=== PATIENT | female | born 1985 | race Caucasian/White ===

== ENCOUNTER 2020-08-20 08:45 | Outpatient (REF) | payer OTHER, SELFPAY ==
[2020-08-20 09:44] LABS: MANUAL DIFF FLAG NO
[2020-08-20 10:06] LABS: Basophils Absolute Auto 0.1 X10*3/uL (0.0-0.2); Basophils Percent Auto 1.2 % (0-2); Eosinophils Absolute Auto 0.3 X10*3/uL (0.0-0.4); Eosinophils Percent Auto 4.3 % (0-4); Hematocrit 34.4 % (37-47); Hemoglobin 10.7 g/dl (12.0-16.0); Imm Gran Abs Auto 0.01 X10*3/uL (0.00-0.03); Imm Gran Pct Auto 0.2 % (0.0-0.4); Lymphocytes Absolute Auto 1.8 X10*3/uL (1.2-4.9); Lymphocytes Percent Auto 29.9 % (20-40); Mean Corpuscular HGB Conc 31.1 g/dl (31.0-35.0); Mean Corpuscular Hemoglobin 25.5 pg (27.0-33.0); Mean Corpuscular Volume 82.1 fL (80-98); Mean Platelet Volume 10.5 fL (9.4-12.3); Monocytes Absolute Auto 0.5 X10*3/uL (0.1-1.2); Monocytes Percent Auto 7.8 % (2-11); Neutrophils Absolute Auto 3.3 X10*3/uL (2.0-8.3); Neutrophils Percent Auto 56.6 % (45-73); Platelet Count 318 X10*3/uL (160-400); Red Blood Count 4.19 X10*6/uL (4.20-5.50); Red Cell Distribution Width 15.9 % (11.0-16.0); White Blood Count 5.9 X10*3/uL (4.8-10.8)
[2020-08-20 11:09] LABS: Erythrocyte Sedimentation Rate 18 MM/HR (0-20)
[2020-08-20 11:21] LABS: Alanine Aminotransferase 10 U/L (0-31); Albumin Level 3.6 g/dL (3.5-5.0); Alkaline Phosphatase 61 U/L (39-117); Anion Gap 13 (12-20); Aspartate Amino Transferase 15 U/L (5-31); Bilirubin Total 0.3 mg/dL (0.0-1.0); Blood Urea Nitrogen 9 mg/dL (9-16); C Reactive Protein 0.53 mg/dL (< or = 0.50); Calcium 9.1 mg/dL (8.4-10.2); Carbon Dioxide 22 mmol/L (22-29); Chloride 108 mmol/L (96-108); Estimated Glomerular Filt Rate > 60; Glucose Random 77 mg/dL (60-115); Potassium 4.4 mmol/l (3.3-5.1); Sodium 139 mmol/L (135-145); Total Protein 6.7 g/dL (6.5-8.0)
== END 2020-08-20 08:46 | disposition home or self-care (01) ==
LOC: HO.LAB 08:45
PROVIDERS: PCP Internal Medicine; Visit Provider Student in an Organized Health Care Education/Training Program
DX: M05.79 Rheumatoid arthritis with rheumatoid factor of multiple sites without organ or systems involvement (principal)
CPT/HCPCS: 36415; 80053; 85025; 85652; 86140

== ENCOUNTER → 2020-08-26 09:34 | Outpatient (BNVA) | payer OTHER, SELFPAY | PROVIDERS: PCP Internal Medicine; Referring Provider Internal Medicine; Visit Provider Student in an Organized Health Care Education/Training Program | DX: Z76.89 Persons encountering health services in other specified circumstances (principal) ==

== ENCOUNTER 2020-11-14 06:56 | Outpatient (REF) | payer OTHER, SELFPAY ==
[2020-11-14 07:44] LABS: MANUAL DIFF FLAG NO
[2020-11-14 07:46] LABS: Basophils Absolute Auto 0.1 X10*3/uL (0.0-0.2); Basophils Percent Auto 1.1 % (0-2); Eosinophils Absolute Auto 0.7 X10*3/uL (0.0-0.4); Eosinophils Percent Auto 11.8 % (0-4); Hematocrit 43.3 % (37-47); Hemoglobin 13.9 g/dl (12.0-16.0); Imm Gran Abs Auto 0.02 X10*3/uL (0.00-0.03); Imm Gran Pct Auto 0.3 % (0.0-0.4); Lymphocytes Absolute Auto 2.8 X10*3/uL (1.2-4.9); Lymphocytes Percent Auto 44.3 % (20-40); Mean Corpuscular HGB Conc 32.1 g/dl (31.0-35.0); Mean Corpuscular Hemoglobin 27.9 pg (27.0-33.0); Mean Corpuscular Volume 86.8 fL (80-98); Mean Platelet Volume 10.7 fL (9.4-12.3); Monocytes Absolute Auto 0.6 X10*3/uL (0.1-1.2); Neutrophils Absolute Auto 2.1 X10*3/uL (2.0-8.3); Neutrophils Percent Auto 33.5 % (45-73); Platelet Count 342 X10*3/uL (160-400); Red Blood Count 4.99 X10*6/uL (4.20-5.50); White Blood Count 6.2 X10*3/uL (4.8-10.8)
[2020-11-14 08:02] LABS: Alanine Aminotransferase 12 U/L (0-31); Alkaline Phosphatase 58 U/L (39-117); Anion Gap 16 (12-20); Aspartate Amino Transferase 14 U/L (5-31); Bilirubin Total 0.4 mg/dL (0.0-1.0); Blood Urea Nitrogen 9 mg/dL (9-16); C Reactive Protein 0.19 mg/dL (< or = 0.50); Calcium 9.3 mg/dL (8.4-10.2); Carbon Dioxide 21 mmol/L (22-29); Chloride 108 mmol/L (96-108); Estimated Glomerular Filt Rate > 60; Glucose Random 92 mg/dL (60-115); Potassium 4.6 mmol/l (3.3-5.1); Sodium 140 mmol/L (135-145); Total Protein 7.2 g/dL (6.5-8.0)
== END 2020-11-14 06:57 | disposition home or self-care (01) ==
LOC: HO.LAB 06:56
PROVIDERS: Visit Provider Student in an Organized Health Care Education/Training Program
DX: M05.9 Rheumatoid arthritis with rheumatoid factor, unspecified (principal)
CPT/HCPCS: 36415; 80053; 85025; 86140

== ENCOUNTER → 2020-11-19 09:07 | Outpatient (BNVA) | payer OTHER, SELFPAY | PROVIDERS: PCP Internal Medicine; Visit Provider Student in an Organized Health Care Education/Training Program ==

== ENCOUNTER 2021-05-12 07:05 | Outpatient (REF) | payer OTHER, SELFPAY ==
[2021-05-12 07:30] LABS: MANUAL DIFF FLAG NO
[2021-05-12 07:31] LABS: Basophils Absolute Auto 0.1 X10*3/uL (0.0-0.2); Basophils Percent Auto 1.8 % (0-2); Eosinophils Absolute Auto 0.7 X10*3/uL (0.0-0.4); Eosinophils Percent Auto 14.2 % (0-4); Hematocrit 39.9 % (37-47); Hemoglobin 12.9 g/dl (12.0-16.0); Lymphocytes Absolute Auto 2.5 X10*3/uL (1.2-4.9); Lymphocytes Percent Auto 48.8 % (20-40); Mean Corpuscular HGB Conc 32.3 g/dl (31.0-35.0); Mean Corpuscular Hemoglobin 28.6 pg (27.0-33.0); Mean Corpuscular Volume 88.5 fL (80-98); Mean Platelet Volume 10.2 fL (9.4-12.3); Monocytes Absolute Auto 0.4 X10*3/uL (0.1-1.2); Monocytes Percent Auto 7.1 % (2-11); Neutrophils Absolute Auto 1.4 X10*3/uL (2.0-8.3); Neutrophils Percent Auto 28.1 % (45-73); Platelet Count 341 X10*3/uL (160-400); Red Blood Count 4.51 X10*6/uL (4.20-5.50); Red Cell Distribution Width 14.3 % (11.0-16.0); White Blood Count 5.1 X10*3/uL (4.8-10.8)
[2021-05-12 07:57] LABS: Alanine Aminotransferase 10 U/L (0-31); Albumin Level 3.8 g/dL (3.5-5.0); Alkaline Phosphatase 57 U/L (39-117); Anion Gap 12 (12-20); Aspartate Amino Transferase 13 U/L (5-31); Bilirubin Total 0.8 mg/dL (0.0-1.0); Blood Urea Nitrogen 10 mg/dL (9-16); C Reactive Protein 0.23 mg/dL (< or = 0.50); Calcium 9.6 mg/dL (8.4-10.2); Carbon Dioxide 24 mmol/L (22-29); Chloride 109 mmol/L (96-108); Estimated Glomerular Filt Rate > 60; Glucose Random 86 mg/dL (60-115); Potassium 4.4 mmol/L (3.3-5.1); Sodium 141 mmol/L (135-145); Total Protein 6.9 g/dL (6.5-8.0)
== END 2021-05-12 07:06 | disposition home or self-care (01) ==
LOC: HO.LAB 07:05
PROVIDERS: PCP Internal Medicine; Visit Provider Student in an Organized Health Care Education/Training Program
DX: M05.9 Rheumatoid arthritis with rheumatoid factor, unspecified (principal)
CPT/HCPCS: 36415; 80053; 85025; 86140

== ENCOUNTER → 2021-05-19 11:20 | Outpatient (BNVA) | payer OTHER, SELFPAY | PROVIDERS: Visit Provider Student in an Organized Health Care Education/Training Program ==

== ENCOUNTER 2021-09-22 14:19 | Outpatient (REF) | payer OTHER, SELFPAY ==
[2021-09-22 15:23] LABS: MANUAL DIFF FLAG NO
[2021-09-22 15:52] LABS: Basophils Absolute Auto 0.1 X10*3/uL (0.0-0.2); Eosinophils Absolute Auto 0.7 X10*3/uL (0.0-0.4); Eosinophils Percent Auto 10.3 % (0-4); Hematocrit 40.4 % (37.0-47.0); Hemoglobin 13.2 g/dl (12.0-16.0); Imm Gran Abs Auto 0.03 X10*3/uL (0.00-0.03); Imm Gran Pct Auto 0.4 % (0.0-0.4); Lymphocytes Absolute Auto 2.7 X10*3/uL (1.2-4.9); Lymphocytes Percent Auto 38.6 % (20-40); Mean Corpuscular HGB Conc 32.7 g/dl (31.0-35.0); Mean Corpuscular Hemoglobin 28.3 pg (27.0-33.0); Mean Corpuscular Volume 86.7 fL (80.0-98.0); Mean Platelet Volume 10.6 fL (9.4-12.3); Monocytes Absolute Auto 0.7 X10*3/uL (0.1-1.2); Monocytes Percent Auto 9.6 % (2-11); Neutrophils Absolute Auto 2.8 x10*3/uL (2.0-8.3); Neutrophils Percent Auto 40.1 % (45-73); Platelet Count 308 X10*3/uL (160-400); Red Blood Count 4.66 X10*6/uL (4.20-5.50); Red Cell Distribution Width 13.5 % (11.0-16.0)
[2021-09-22 16:06] LABS: Alanine Aminotransferase 11 U/L (0-31); Albumin Level 3.9 g/dL (3.5-5.0); Alkaline Phosphatase 58 U/L (39-117); Anion Gap 11 (12-20); Aspartate Amino Transferase 16 U/L (5-31); Bilirubin Total 0.3 mg/dL (0.0-1.0); Blood Urea Nitrogen 6 mg/dL (9-16); C Reactive Protein 0.39 mg/dL (< or = 0.50); Calcium 9.2 mg/dL (8.4-10.2); Carbon Dioxide 22 mmol/L (22-29); Chloride 112 mmol/L (96-108); Estimated Glomerular Filt Rate > 60; Glucose Random 110 mg/dL (60-115); Potassium 3.9 mmol/L (3.3-5.1); Sodium 141 mmol/L (135-145); Total Protein 6.9 g/dL (6.5-8.0)
[2021-09-22 17:08] LABS: Erythrocyte Sedimentation Rate 7 MM/HR (0-20)
== END 2021-09-22 14:20 | disposition home or self-care (01) ==
LOC: HO.LAB 14:19
PROVIDERS: PCP Internal Medicine; Visit Provider Nurse Practitioner Family
DX: M05.9 Rheumatoid arthritis with rheumatoid factor, unspecified (principal); R01.1 Cardiac murmur, unspecified
CPT/HCPCS: 36415; 80053; 85025; 85652; 86140

== ENCOUNTER 2022-01-27 07:56 | Outpatient (REF) | payer OTHER, SELFPAY ==
[2022-01-27 08:31] LABS: MANUAL DIFF FLAG NO
[2022-01-27 08:45] LABS: Basophils Absolute Auto 0.1 X10*3/uL (0.0-0.2); Basophils Percent Auto 1.2 % (0-2); Eosinophils Absolute Auto 0.6 X10*3/uL (0.0-0.4); Eosinophils Percent Auto 8.3 % (0-4); Hematocrit 39.9 % (37.0-47.0); Hemoglobin 13.1 g/dl (12.0-16.0); Imm Gran Abs Auto 0.01 X10*3/uL (0.00-0.03); Imm Gran Pct Auto 0.1 % (0.0-0.4); Lymphocytes Absolute Auto 2.2 X10*3/uL (1.2-4.9); Lymphocytes Percent Auto 31.8 % (20-40); Mean Corpuscular HGB Conc 32.8 g/dl (31.0-35.0); Mean Corpuscular Hemoglobin 29.2 pg (27.0-33.0); Mean Corpuscular Volume 88.9 fL (80.0-98.0); Mean Platelet Volume 10.4 fL (9.4-12.3); Monocytes Absolute Auto 0.5 X10*3/uL (0.1-1.2); Monocytes Percent Auto 7.8 % (2-11); Neutrophils Absolute Auto 3.5 x10*3/uL (2.0-8.3); Neutrophils Percent Auto 50.8 % (45-73); Platelet Count 336 X10*3/uL (160-400); Red Blood Count 4.49 X10*6/uL (4.20-5.50); White Blood Count 6.9 X10*3/uL (4.8-10.8)
[2022-01-27 09:08] LABS: Alanine Aminotransferase 16 U/L (0-31); Albumin Level 3.7 g/dL (3.5-5.0); Alkaline Phosphatase 61 U/L (39-117); Anion Gap 12 (12-20); Aspartate Amino Transferase 18 U/L (5-31); Bilirubin Total 0.6 mg/dL (0.0-1.0); Blood Urea Nitrogen 10 mg/dL (9-16); C Reactive Protein 0.41 mg/dL (< or = 0.50); Calcium 9.6 mg/dL (8.4-10.2); Carbon Dioxide 23 mmol/L (22-29); Chloride 108 mmol/L (96-108); Estimated Glomerular Filt Rate > 60; Glucose Random 81 mg/dL (60-115); Potassium 4.8 mmol/L (3.3-5.1); Sodium 138 mmol/L (135-145); Total Protein 6.8 g/dL (6.5-8.0)
[2022-01-27 11:32] LABS: Erythrocyte Sedimentation Rate 7 MM/HR (0-20)
== END 2022-01-27 07:57 | disposition home or self-care (01) ==
LOC: HO.LAB 07:56
PROVIDERS: PCP Internal Medicine; Visit Provider Nurse Practitioner Family
DX: M05.9 Rheumatoid arthritis with rheumatoid factor, unspecified (principal)
CPT/HCPCS: 36415; 80053; 85025; 85652; 86140

== ENCOUNTER 2022-04-20 08:50 | Outpatient (REF) | payer OTHER, SELFPAY ==
[2022-04-20 11:25] LABS: MANUAL DIFF FLAG NO
[2022-04-20 11:53] LABS: Basophils Absolute Auto 0.1 X10*3/uL (0.0-0.2); Basophils Percent Auto 1.7 % (0-2); Eosinophils Absolute Auto 0.5 X10*3/uL (0.0-0.4); Eosinophils Percent Auto 11.2 % (0-4); Hematocrit 38.7 % (37.0-47.0); Hemoglobin 12.6 g/dl (12.0-16.0); Imm Gran Abs Auto 0.01 X10*3/uL (0.00-0.03); Imm Gran Pct Auto 0.2 % (0.0-0.4); Lymphocytes Absolute Auto 2.1 X10*3/uL (1.2-4.9); Lymphocytes Percent Auto 43.5 % (20-40); Mean Corpuscular HGB Conc 32.6 g/dl (31.0-35.0); Mean Corpuscular Hemoglobin 29.1 pg (27.0-33.0); Mean Corpuscular Volume 89.4 fL (80.0-98.0); Monocytes Absolute Auto 0.4 X10*3/uL (0.1-1.2); Monocytes Percent Auto 8.5 % (2-11); Neutrophils Absolute Auto 1.7 x10*3/uL (2.0-8.3); Neutrophils Percent Auto 34.9 % (45-73); Platelet Count 335 X10*3/uL (160-400); Red Blood Count 4.33 X10*6/uL (4.20-5.50); Red Cell Distribution Width 14.2 % (11.0-16.0); White Blood Count 4.8 X10*3/uL (4.8-10.8)
[2022-04-20 12:10] LABS: Alanine Aminotransferase 9 U/L (0-31); Albumin Level 3.7 g/dL (3.5-5.0); Alkaline Phosphatase 64 U/L (39-117); Anion Gap 12 (12-20); Aspartate Amino Transferase 13 U/L (5-31); Bilirubin Total 0.4 mg/dL (0.0-1.0); Blood Urea Nitrogen 10 mg/dL (9-16); C Reactive Protein 0.16 mg/dL (< or = 0.50); Calcium 9.1 mg/dL (8.4-10.2); Carbon Dioxide 22 mmol/L (22-29); Chloride 110 mmol/L (96-108); Estimated Glomerular Filt Rate > 60; Glucose Random 92 mg/dL (60-115); Potassium 4.2 mmol/L (3.3-5.1); Sodium 140 mmol/L (135-145); Total Protein 6.6 g/dL (6.5-8.0)
[2022-04-20 12:31] LABS: Erythrocyte Sedimentation Rate 5 MM/HR (0-20)
== END 2022-04-20 08:51 | disposition home or self-care (01) ==
LOC: HO.WFDLDS 08:50
PROVIDERS: Visit Provider Nurse Practitioner Family
DX: M05.9 Rheumatoid arthritis with rheumatoid factor, unspecified (principal)
CPT/HCPCS: 36415; 80053; 85025; 85652; 86140

== ENCOUNTER 2022-06-04 08:30 | Outpatient (REF) | payer OTHER, SELFPAY ==
[2022-06-04 11:52] LABS: MANUAL DIFF FLAG NO
[2022-06-04 12:02] LABS: Basophils Absolute Auto 0.1 X10*3/uL (0.0-0.2); Basophils Percent Auto 1.3 % (0-2); Eosinophils Absolute Auto 0.5 X10*3/uL (0.0-0.4); Eosinophils Percent Auto 10.1 % (0-4); Hematocrit 39.4 % (37.0-47.0); Imm Gran Abs Auto 0.01 X10*3/uL (0.00-0.03); Imm Gran Pct Auto 0.2 % (0.0-0.4); Lymphocytes Absolute Auto 2.5 X10*3/uL (1.2-4.9); Lymphocytes Percent Auto 55.4 % (20-40); Mean Corpuscular Hemoglobin 29.3 pg (27.0-33.0); Mean Corpuscular Volume 88.7 fL (80.0-98.0); Mean Platelet Volume 10.8 fL (9.4-12.3); Monocytes Absolute Auto 0.5 X10*3/uL (0.1-1.2); Monocytes Percent Auto 10.3 % (2-11); Neutrophils Percent Auto 22.7 % (45-73); Platelet Count 311 X10*3/uL (160-400); Red Blood Count 4.44 X10*6/uL (4.20-5.50); Red Cell Distribution Width 14.3 % (11.0-16.0); White Blood Count 4.5 X10*3/uL (4.8-10.8)
== END 2022-06-04 08:31 | disposition home or self-care (01) ==
LOC: HO.WFDLDS 08:30
PROVIDERS: Visit Provider Nurse Practitioner Family
DX: M05.9 Rheumatoid arthritis with rheumatoid factor, unspecified (principal)
CPT/HCPCS: 36415; 85025

== ENCOUNTER 2022-06-30 08:47 | Outpatient (REF) | payer OTHER, SELFPAY ==
[2022-06-30 11:09] LABS: MANUAL DIFF FLAG NO
[2022-06-30 11:17] LABS: Basophils Absolute Auto 0.1 X10*3/uL (0.0-0.2); Basophils Percent Auto 1.4 % (0-2); Eosinophils Absolute Auto 0.3 X10*3/uL (0.0-0.4); Eosinophils Percent Auto 7.8 % (0-4); Hematocrit 40.1 % (37.0-47.0); Hemoglobin 13.3 g/dl (12.0-16.0); Imm Gran Abs Auto 0.01 X10*3/uL (0.00-0.03); Imm Gran Pct Auto 0.2 % (0.0-0.4); Lymphocytes Absolute Auto 1.9 X10*3/uL (1.2-4.9); Lymphocytes Percent Auto 45.8 % (20-40); Mean Corpuscular HGB Conc 33.2 g/dl (31.0-35.0); Mean Corpuscular Hemoglobin 28.9 pg (27.0-33.0); Mean Corpuscular Volume 87.2 fL (80.0-98.0); Mean Platelet Volume 10.6 fL (9.4-12.3); Monocytes Absolute Auto 0.4 X10*3/uL (0.1-1.2); Monocytes Percent Auto 10.1 % (2-11); Neutrophils Absolute Auto 1.5 x10*3/uL (2.0-8.3); Neutrophils Percent Auto 34.7 % (45-73); Platelet Count 317 X10*3/uL (160-400); Red Cell Distribution Width 13.9 % (11.0-16.0); White Blood Count 4.2 X10*3/uL (4.8-10.8)
== END 2022-06-30 08:48 | disposition home or self-care (01) ==
LOC: HO.WFDLDS 08:47
PROVIDERS: Visit Provider Nurse Practitioner Family
DX: D70.9 Neutropenia, unspecified (principal)
CPT/HCPCS: 36415; 85025

== ENCOUNTER 2022-08-18 09:54 | Outpatient (REF) | payer OTHER, SELFPAY ==
[2022-08-18 10:36] LABS: MANUAL DIFF FLAG NO
[2022-08-18 11:05] LABS: Basophils Absolute Auto 0.1 X10*3/uL (0.0-0.2); Basophils Percent Auto 0.9 % (0-2); Eosinophils Absolute Auto 0.4 X10*3/uL (0.0-0.4); Eosinophils Percent Auto 5.3 % (0-4); Hematocrit 42.7 % (37.0-47.0); Hemoglobin 13.9 g/dl (12.0-16.0); Imm Gran Abs Auto 0.01 X10*3/uL (0.00-0.03); Imm Gran Pct Auto 0.1 % (0.0-0.4); Lymphocytes Percent Auto 28.2 % (20-40); Mean Corpuscular HGB Conc 32.6 g/dl (31.0-35.0); Mean Corpuscular Hemoglobin 28.3 pg (27.0-33.0); Mean Platelet Volume 10.7 fL (9.4-12.3); Monocytes Absolute Auto 0.4 X10*3/uL (0.1-1.2); Monocytes Percent Auto 5.2 % (2-11); Neutrophils Absolute Auto 4.2 x10*3/uL (2.0-8.3); Neutrophils Percent Auto 60.3 % (45-73); Platelet Count 341 X10*3/uL (160-400); Red Blood Count 4.91 X10*6/uL (4.20-5.50); Red Cell Distribution Width 13.4 % (11.0-16.0)
[2022-08-18 11:29] LABS: Alanine Aminotransferase 9 U/L (0-31); Aspartate Amino Transferase 13 U/L (5-31); C Reactive Protein 0.12 mg/dL (< or = 0.50); Estimated Glomerular Filt Rate > 60
[2022-08-18 11:51] LABS: Erythrocyte Sedimentation Rate 6 MM/HR (0-20)
== END 2022-08-18 09:55 | disposition home or self-care (01) ==
LOC: HO.10HDL 09:54
PROVIDERS: Visit Provider Nurse Practitioner Family
DX: M05.9 Rheumatoid arthritis with rheumatoid factor, unspecified (principal); Z79.899 Other long term (current) drug therapy
CPT/HCPCS: 36415; 82565; 84450; 84460; 85025; 85652; 86140

== ENCOUNTER → 2022-11-17 11:11 | Outpatient (BNVA) | payer OTHER, SELFPAY | PROVIDERS: PCP Internal Medicine; Visit Provider Nurse Practitioner Family | DX: M05.9 Rheumatoid arthritis with rheumatoid factor, unspecified (principal) ==

== ENCOUNTER 2022-11-17 12:04 | Outpatient (REF) | payer OTHER, SELFPAY ==
[2022-11-17 13:35] LABS: MANUAL DIFF FLAG NO
[2022-11-17 13:44] LABS: Basophils Absolute Auto 0.1 X10*3/uL (0.0-0.2); Eosinophils Absolute Auto 0.6 X10*3/uL (0.0-0.4); Eosinophils Percent Auto 6.8 % (0-4); Hematocrit 42.8 % (37.0-47.0); Hemoglobin 14.1 g/dl (12.0-16.0); Imm Gran Abs Auto 0.02 X10*3/uL (0.00-0.03); Imm Gran Pct Auto 0.2 % (0.0-0.4); Lymphocytes Absolute Auto 3.1 X10*3/uL (1.2-4.9); Lymphocytes Percent Auto 36.6 % (20-40); Mean Corpuscular HGB Conc 32.9 g/dl (31.0-35.0); Mean Corpuscular Hemoglobin 29.6 pg (27.0-33.0); Mean Corpuscular Volume 89.7 fL (80.0-98.0); Mean Platelet Volume 10.4 fL (9.4-12.3); Monocytes Absolute Auto 0.4 X10*3/uL (0.1-1.2); Monocytes Percent Auto 5.3 % (2-11); Neutrophils Absolute Auto 4.2 x10*3/uL (2.0-8.3); Neutrophils Percent Auto 50.1 % (45-73); Platelet Count 346 X10*3/uL (160-400); Red Blood Count 4.77 X10*6/uL (4.20-5.50); White Blood Count 8.4 X10*3/uL (4.8-10.8)
[2022-11-17 14:27] LABS: Erythrocyte Sedimentation Rate 5 MM/HR (0-20)
[2022-11-17 14:38] LABS: Alanine Aminotransferase 9 U/L (0-31); Aspartate Amino Transferase 13 U/L (5-31); C Reactive Protein 0.19 mg/dL (< or = 0.50); Estimated Glomerular Filt Rate > 60
== END 2022-11-17 12:05 | disposition home or self-care (01) ==
LOC: HO.10HDL 12:04
PROVIDERS: Visit Provider Nurse Practitioner Family
DX: M05.9 Rheumatoid arthritis with rheumatoid factor, unspecified (principal); Z79.899 Other long term (current) drug therapy
CPT/HCPCS: 36415; 82565; 84450; 84460; 85025; 85652; 86140

== ENCOUNTER → 2023-03-16 08:28 | Outpatient (BNVA) | payer OTHER, SELFPAY | PROVIDERS: PCP Internal Medicine; Visit Provider Nurse Practitioner Family ==

== ENCOUNTER 2023-03-16 09:15 | Outpatient (REF) | payer OTHER, SELFPAY ==
[2023-03-16 10:34] LABS: MANUAL DIFF FLAG NO
[2023-03-16 10:45] LABS: Basophils Absolute Auto 0.1 X10*3/uL (0.0-0.2); Basophils Percent Auto 0.9 % (0-2); Eosinophils Absolute Auto 0.7 X10*3/uL (0.0-0.4); Hematocrit 44.3 % (37.0-47.0); Hemoglobin 14.7 g/dl (12.0-16.0); Imm Gran Abs Auto 0.03 X10*3/uL (0.00-0.03); Imm Gran Pct Auto 0.4 % (0.0-0.4); Lymphocytes Absolute Auto 2.9 X10*3/uL (1.2-4.9); Lymphocytes Percent Auto 35.3 % (20-40); Mean Corpuscular HGB Conc 33.2 g/dl (31.0-35.0); Mean Corpuscular Hemoglobin 29.2 pg (27.0-33.0); Mean Corpuscular Volume 87.9 fL (80.0-98.0); Mean Platelet Volume 9.6 fL (9.4-12.3); Monocytes Absolute Auto 0.5 X10*3/uL (0.1-1.2); Monocytes Percent Auto 5.7 % (2-11); Neutrophils Percent Auto 48.7 % (45-73); Platelet Count 375 X10*3/uL (160-400); Red Blood Count 5.04 X10*6/uL (4.20-5.50); Red Cell Distribution Width 13.1 % (11.0-16.0); White Blood Count 8.2 X10*3/uL (4.8-10.8)
[2023-03-16 11:07] LABS: Alanine Aminotransferase 18 U/L (0-31); Albumin Level 4.1 g/dL (3.5-5.0); Alkaline Phosphatase 86 U/L (39-117); Anion Gap 11 (12-20); Aspartate Amino Transferase 17 U/L (5-31); Bilirubin Total 0.8 mg/dL (0.0-1.0); Blood Urea Nitrogen 9 mg/dL (9-16); C Reactive Protein 0.12 mg/dL (< or = 0.50); Calcium 9.5 mg/dL (8.4-10.2); Carbon Dioxide 27 mmol/L (22-29); Chloride 107 mmol/L (96-108); Estimated Glomerular Filt Rate > 60; Glucose Random 78 mg/dL (60-115); Potassium 4.2 mmol/L (3.3-5.1); Sodium 141 mmol/L (135-145)
[2023-03-16 11:32] LABS: Erythrocyte Sedimentation Rate 5 MM/HR (0-20)
== END 2023-03-16 09:16 | disposition home or self-care (01) ==
LOC: HO.10HDL 09:15
PROVIDERS: Visit Provider Nurse Practitioner Family
DX: M05.9 Rheumatoid arthritis with rheumatoid factor, unspecified (principal)
CPT/HCPCS: 36415; 80053; 85025; 85652; 86140

== ENCOUNTER 2023-07-13 09:07 | Outpatient (AMB) | payer OTHER, SELFPAY ==
[2023-07-13 09:20] VITALS: BP 122/80; PULSE 66; TEMP 36.6; O2SAT 94; BMI 38.4
--- NOTE | 2023-07-13 09:20 | A.OFFVIS_ITS ---
Intake Vital Signs 07/13/23 09:20 Height 5 ft 5 in Weight 230 lb 13.184 oz BMI 38.4 BP 122/80 Blood Pressure Location Rt brachial Position Sitting Pulse 66 Pulse Source Pulse Oximeter Temp 97.8 F Pulse Oximetry (%) 94 Intake Visit Reasons: rheumatoid arthritis Intake Note: Pt seen today for RA follow up. C/o right hand thumb and pinky finger pain a pprox 2 mos ago, lasted for a day and resolved on its own. Process Controls Technician Required: No Accompanied by: Self / Same As Patient Allergies BEE STINGS Allergy (Intermediate, Uncoded 07/13/23 09:24) Swelling Medication List - Last Reconciled 07/13/23 by Kell Mae MD adalimumab (Humira Pen) 40 mg (0.8 mL) subcut Q2W cholecalciferol (vitamin D3) 25 mcg PO DAILY cyanocobalamin (vitamin B-12) 1,000 mcg PO DAILY ferrous sulfate 325 mg PO DAILY lutein 10 mg PO DAILY naproxen sodium (Aleve) 220 mg PO BID PRN norgestimate-ethinyl estradiol 0.25-35 mg-mcg (Previfem) 1 tab PO DAILY omeprazole 40 mg PO DAILY HPI HPI Comments History of Present Illness Details 37yoF presents for follow-up of seroposi tive RA (RF+ CCP++). Last seen in by Rosalind Cross 03/22 On Humira, tolerating this well. Patient states that her rheumatoid arthritis pain is stable. States that 2 months ago she had some pain in her right hand thumb and pinky finger that self- resolved in 1 day. Over the last 4-5 months she has been having shortness of breath and cough worse with activity and smoke exposure. She has been using [id number] epinephrine inhalers. She has had difficulty getting to see her PCP. She mentioned that she had asthma as a child and she grew out of it [facility] Medical History (Updated 07/13/23 @ 09:53 by Kell Mae MD) Seropositive rheumatoid arthritis Surgical History Hx of tubal ligation Family History Father Diabetes Heart disease Mother Arthritis Social History Alcohol intake: current Alcohol intake frequency: holidays/special occasions only Alcohol type: hard liquor Patient Tobacco Use Status: Never used Tobacco Review of Systems Card Reports dyspnea Resp Reports cough and Reports dyspnea Musc Denies arthralgias Physical Exam Vital Signs: Last Vital Signs Temp 97.8 F 07/13/23 09:20 Pulse 66 07/13/23 09:20 BP 122/80 07/13/23 09:20 Pulse Ox 94 07/13/23 09:20 BMI result Body Mass Index 38.4 Const General: cooperative, healthy appearing and comfortable Nutritional Appearance: obese Orientation/consciousness: patient oriented x3 Limitations: no limitations HEENT Head: Yes normocephalic and Yes atraumatic Mouth: moist mucous membranes Resp Effort & Inspection: normal respiratory effort and able to speak in complete sentences Auscultation: wheezes Cardio Rate: regular rate Rhythm: regular rhythm Neuro General: patient oriented x3 Extrem Other: Mild prominence of PIP is bilaterally without swelling or tenderness No active synovitis Normal nailfold capillaroscopy Assessment & Plan Assessment & Plan (1) Seropositive rheumatoid arthritis: Comment: +RF++CCP Diagnosed age 23 Enbrel: stopped working after a few years Methotrexate: stopped, she thinks due to labs Simponi: Stopped working after a few years Humira: 07/2015-present Leflunomide: 2013- stopped due to low absolute neutrophil count, labs improved off medication, no change joint pain or swelling 07/2022 so did not restart Code(s): M05.9 - Rheumatoid arthritis with rheumatoid factor, unspecified Plan: This is a 37-year-old female with seropositive RA who presents for follow-up. Her RA is in remission on Humira 40 mg every other week. Continue Humira Labs before next visit in 4 months (2) Shortness of breath: Code(s): R06.02 - Shortness of breath Plan: History of asthma as a child, shortness of breath cough over the last 4-6 months exacerbated by activity and smoke. Wheezing on exam. Likely asthma. Will prescribe an albuterol inhaler and advised patient to follow-up with her PCP. Will check PFTs to confirm the diagnosis of asthma and rule out overlap with RA- ILD (3) High risk medication use: Code(s): Z79.899 - Other residential (current) drug therapy Plan: Patient is aware of the risks of Humira. Advised patient to get a a complete skin exam every 1 or 2 years by Dermatology Plan I spent 26 minutes reviewing patient's chart, evaluating patient, ordering diagnostic workup, counseling patient and documenting in the chart Orders: Orders Comprehensive Met. Panel 4 Months M05.9 - Rheumatoid arthritis with rheumatoid factor, unspecified Erythrocyte Sedimentation Rate 4 Months M05.9 - Rheumatoid arthritis with rheumatoid factor, unspecified T Spot TB 4 Months Z11.7 - Encounter for testing for latent tuberculosis infection Complete Blood Count Auto Diff 4 Months M05.9 - Rheumatoid arthritis with rheumatoid factor, unspecified C Reactive Protein 4 Months M05.9 - Rheumatoid arthritis with rheumatoid factor, unspecified Hepatitis A,B,C Profile 4 Months Z11.59 - Encounter for screening for other viral diseases PFT pulmonary function test Today R06.02 - Shortness of breath Medications: New albuterol sulfate 90 mcg/actuation (Ventolin HFA) 1 inh inhalation Q4-6H PRN 6.7 grams 1RF shortness of breath or wheezing Coding Level of Care Code Est Pt Level 4 (43020) Diagnoses Seropositive rheumatoid arthritis M05.9 Shortness of breath R06.02 High risk medication use Z79.899
== END 2023-07-13 09:44 | disposition home or self-care (01) ==
PROVIDERS: PCP Internal Medicine; Visit Provider Student in an Organized Health Care Education/Training Program
DX: M05.79 Rheumatoid arthritis with rheumatoid factor of multiple sites without organ or systems involvement (principal); R06.02 Shortness of breath; Z79.899 Other long term (current) drug therapy
CPT/HCPCS: 99214

== ENCOUNTER → 2023-07-13 09:07 | Outpatient (BNVA) | payer OTHER, SELFPAY | PROVIDERS: PCP Internal Medicine; Visit Provider Student in an Organized Health Care Education/Training Program ==

== ENCOUNTER 2023-08-02 07:26 | Outpatient (REF) | payer OTHER, SELFPAY ==
--- NOTE | 2023-08-02 08:06 | PFT_ITS ---
INDICATION: Asthma. SPIROMETRY: FEV1 to FVC prebronchodilator 68%, postbronchodilator 78% with an FEV1 of 2.95 L, which is 92% predicted and FVC of 3.79 L, which is 98% predicted. There was a significant response to bronchodilators noted. The FEF 25 to 75 was down to 35% predicted prior to bronchodilators. Maximum voluntary ventilation 67% predicted. LUNG VOLUMES: Total lung capacity 88% predicted. DIFFUSION CAPACITY: DLCO of 97% predicted. COMPARISONS: None. INTERPRETATION: There is a reversal obstructive ventilatory defects consistent with a diagnosis of asthma. The patient has a significant response to bronchodilators noted. In addition to that has significant more airway disease suggesting the severity of her asthma. The patient also has a mild decreased in maximum voluntary ventilation, which could be secondary to deconditioning. Lung volumes are within normal limits and diffusion capacity within normal limits. Again, this PFTs are consistent with her diagnosis of asthma. MD DASIA Gordon/DORI / [id number]
== END 2023-08-02 07:27 | disposition home or self-care (01) ==
LOC: HO.RESP 07:26
PROVIDERS: PCP Internal Medicine; Visit Provider Student in an Organized Health Care Education/Training Program
DX: R06.02 Shortness of breath (principal)
CPT/HCPCS: 94010; 94727; 94729

== ENCOUNTER → 2023-08-02 08:06 | Outpatient (BNV) | payer OTHER, SELFPAY | PROVIDERS: PCP Internal Medicine; Visit Provider Hospitalist | DX: R06.02 Shortness of breath (principal) | CPT/HCPCS: 94060; 94727; 94729 ==

== ENCOUNTER 2023-10-26 08:40 | Outpatient (REF) | payer OTHER, SELFPAY ==
[2023-10-26 10:22] LABS: MANUAL DIFF FLAG NO
[2023-10-26 10:26] LABS: Basophils Absolute Auto 0.1 X10*3/uL (0.0-0.2); Basophils Percent Auto 1.2 % (0-2); Eosinophils Percent Auto 13.7 % (0-4); Hematocrit 42.6 % (37.0-47.0); Hemoglobin 14.3 g/dl (12.0-16.0); Imm Gran Abs Auto 0.01 X10*3/uL (0.00-0.03); Imm Gran Pct Auto 0.1 % (0.0-0.4); Lymphocytes Absolute Auto 2.9 X10*3/uL (1.2-4.9); Lymphocytes Percent Auto 39.9 % (20-40); Mean Corpuscular HGB Conc 33.6 g/dl (31.0-35.0); Mean Corpuscular Hemoglobin 29.7 pg (27.0-33.0); Mean Corpuscular Volume 88.4 fL (80.0-98.0); Mean Platelet Volume 9.6 fL (9.4-12.3); Monocytes Absolute Auto 0.4 X10*3/uL (0.1-1.2); Monocytes Percent Auto 5.8 % (2-11); Neutrophils Absolute Auto 2.9 x10*3/uL (2.0-8.3); Neutrophils Percent Auto 39.3 % (45-73); Platelet Count 371 X10*3/uL (160-400); Red Blood Count 4.82 X10*6/uL (4.20-5.50); Red Cell Distribution Width 12.6 % (11.0-16.0); White Blood Count 7.3 X10*3/uL (4.8-10.8)
[2023-10-26 10:56] LABS: Alanine Aminotransferase 10 U/L (0-31); Alkaline Phosphatase 74 U/L (39-117); Anion Gap 10 (12-20); Aspartate Amino Transferase 14 U/L (5-31); Bilirubin Total 0.6 mg/dL (0.0-1.0); Blood Urea Nitrogen 12 mg/dL (9-16); Calcium 9.1 mg/dL (8.4-10.2); Carbon Dioxide 26 mmol/L (22-29); Chloride 108 mmol/L (96-108); Estimated Glomerular Filt Rate > 60; Glucose Random 86 mg/dL (60-115); Potassium 3.8 mmol/L (3.3-5.1); Sodium 140 mmol/L (135-145); Total Protein 7.1 g/dL (6.5-8.0)
[2023-10-26 11:04] LABS: Erythrocyte Sedimentation Rate 4 MM/HR (0-20)
[2023-10-26 11:12] LABS: HBS Num1 82.49 mIU/mL (0-7.99); HBc Num1 0.09 S/CO (0.00-0.79); HBsAGNum1 0.31 S/CO (0.00-0.99); Hepatitis A Antibody IgM 0.19 Index (0-0.79); Hepatitis B Core Antibody Nonreactive (Nonreactive); Hepatitis B Surface Antigen Negative (Negative); ~Hepatitis A Antibody IgM Nonreactive (Nonreactive); ~Hepatitis B Surface Antibody REACTIVE (Nonreactive); ~Hepatitis C Antibody Nonreactive (Nonreactive)
[2023-10-28 21:28] LABS: TS Negative Control Passed; TS Panel A 3; TS Panel B 2; TS Positive Control Passed; TSpotTB Negative (Negative)
== END 2023-10-26 08:41 | disposition home or self-care (01) ==
LOC: HO.10HDL 08:40
PROVIDERS: Visit Provider Student in an Organized Health Care Education/Training Program
DX: M05.9 Rheumatoid arthritis with rheumatoid factor, unspecified (principal); Z11.7 Encounter for testing for latent tuberculosis infection; Z11.59 Encounter for screening for other viral diseases; Z72.89 Other problems related to lifestyle
CPT/HCPCS: 36415; 80053; 85025; 85652; 86140; 86481; 86704; 86706; 86709; 86803; 87340

== ENCOUNTER 2023-11-16 10:07 | Outpatient (AMB) | payer OTHER, SELFPAY ==
[2023-11-16 10:13] VITALS: BP 128/76; PULSE 71; O2SAT 98; BMI 39.0
--- NOTE | 2023-11-16 10:13 | A.OFFVIS_ITS ---
Intake Vital Signs 11/16/23 10:13 Height 5 ft 5 in Weight 234 lb 5.622 oz BMI 39.0 BP 128/76 Blood Pressure Location Rt brachial Position Sitting Pulse 71 Pulse Source Pulse Oximeter Pulse Oximetry (%) 98 Oxygen Delivery Method Room Air Intake Visit Reasons: fm.OA ls Intake Note: Pt last seen 07/13/23 presents today for follow up and test results. Industrial Hygenist Required: No Accompanied by: Self / Same As Patient Allergies BEE STINGS Allergy (Intermediate, Uncoded 11/16/23 10:14) Swelling Medication List - Last Reconciled 11/16/23 by Kell Mae MD albuterol sulfate 90 mcg/actuation (Ventolin HFA) 1 inh inhalation Q4-6H PRN cholecalciferol (vitamin D3) 25 mcg PO DAILY cyanocobalamin (vitamin B-12) 1,000 mcg PO DAILY ferrous sulfate 325 mg PO DAILY Humira Pen (adalimumab) 40 mg (0.8 mL) subcut Q2W NS lutein 10 mg PO DAILY naproxen sodium (Aleve) 220 mg PO BID PRN norgestimate-ethinyl estradiol 0.25-35 mg-mcg (Previfem) 1 tab PO DAILY omeprazole 40 mg PO DAILY HPI HPI Comments History of Present Illness Details 37yoF presents for follow-up of seroposi tive RA (RF+ CCP++). She was last seen 07/2023 On Humira, tolerating this well. Patient states that her rheumatoid arthritis pain is stable. She mentions that over the fall she has the flu, this was followed by a staph infection on the right side of her face and her scalp. She was prescribed antibiotics with resolution. She also stated that she had another flu-like illness a few weeks ago that resolved she states that she continues to get intermittent shortness of breath at work. She believes it is related to turning up the heater at work and it feels stuffy she uses the inhaler about once at work. Otherwise she is doing well. [facility] Medical History Seropositive rheumatoid arthritis Surgical History Hx of tubal ligation Family History Father Diabetes Heart disease Mother Arthritis Social History Alcohol intake: current Alcohol intake frequency: holidays/special occasions only Alcohol type: hard liquor Patient Tobacco Use Status: Never used Tobacco Review of Systems Card Denies dyspnea and Denies dyspnea on exertion Resp Denies dyspnea and Denies dyspnea on exertion Musc Denies arthralgias Physical Exam Vital Signs: Last Vital Signs Pulse 71 11/16/23 10:13 BP 128/76 11/16/23 10:13 Pulse Ox 98 11/16/23 10:13 Oxygen Delivery Method Room Air 11/16/23 10:13 BMI result Body Mass Index 39.0 Const General: cooperative, healthy appearing and comfortable Nutritional Appearance: obese Orientation/consciousness: patient oriented x3 Limitations: no limitations HEENT Head: Yes normocephalic and Yes atraumatic Mouth: moist mucous membranes Resp Effort & Inspection: normal respiratory effort and able to speak in complete sentences Auscultation: clear to auscultation bilaterally Cardio Rate: regular rate Rhythm: regular rhythm Neuro General: patient oriented x3 Extrem Other: Mild prominence of PIP is bilaterally without swelling or tenderness No active synovitis Normal nailfold capillaroscopy Assessment & Plan Assessment & Plan (1) Seropositive rheumatoid arthritis: Comment: +RF++CCP Diagnosed age 23 Enbrel: stopped working after a few years Methotrexate: stopped, she thinks due to labs Simponi: Stopped working after a few years Humira: 07/2015-present Leflunomide: 2014- stopped due to low absolute neutrophil count, labs improved off medication, no change joint pain or swelling 07/2022 so did not restart Code(s): M05.9 - Rheumatoid arthritis with rheumatoid factor, unspecified Plan: This is a 37-year-old female with seropositive RA who presents for follow-up. Her RA is in remission on Humira 40 mg every other week. Continue Humira Infectious screening: Hepatitis panel and T spot negative 09/2023 Labs before next visit in 4 months (2) Shortness of breath: Code(s): R06.02 - Shortness of breath Plan: History of asthma as a child, shortness of breath cough over the last 4-6 months exacerbated by activity and smoke. PFTs were ordered to rule out interstitial lung disease. PFTs were consistent with obstructive disease. No suggestion of restrictive lung disease. Patient has been using Ventolin inhaler about once daily with good control of her symptoms. She has not wheezing on exam today. Follow-up with PCP (3) High risk medication use: Code(s): Z79.899 - Other parts counterman (current) drug therapy Plan: Patient is aware of the risks of Humira. Advised patient to get a a complete skin exam every 1 or 2 years by Dermatology. Hold Humira for any sign of infection (4) Immunization counseling: Code(s): Z71.85 - Encounter for immunization safety counseling Plan: Advised patient to get the flu vaccine for the season and consider getting the COVID booster. She had received 2 COVID vaccine doses Plan I spent 26 minutes reviewing patient's chart, evaluating patient, ordering diagnostic workup, counseling patient and documenting in the chart Orders: Orders Comprehensive Met. Panel 4 Months M05.9 - Rheumatoid arthritis with rheumatoid factor, unspecified C Reactive Protein 4 Months M05.9 - Rheumatoid arthritis with rheumatoid factor, unspecified Erythrocyte Sedimentation Rate 4 Months M05.9 - Rheumatoid arthritis with rheumatoid factor, unspecified Complete Blood Count Auto Diff 4 Months M05.9 - Rheumatoid arthritis with rheumatoid factor, unspecified Coding Level of Care Code Est Pt Level 4 (32561) Diagnoses Seropositive rheumatoid arthritis M05.9 Shortness of breath R06.02 High risk medication use Z79.899 Immunization counseling Z71.85
== END 2023-11-16 10:36 | disposition home or self-care (01) ==
PROVIDERS: PCP Internal Medicine; Visit Provider Student in an Organized Health Care Education/Training Program
DX: M05.79 Rheumatoid arthritis with rheumatoid factor of multiple sites without organ or systems involvement (principal); R06.02 Shortness of breath; Z79.899 Other long term (current) drug therapy; Z71.85 Encounter for immunization safety counseling
CPT/HCPCS: 99214

== ENCOUNTER → 2023-11-16 10:07 | Outpatient (BNVA) | payer OTHER, SELFPAY | PROVIDERS: PCP Internal Medicine; Visit Provider Student in an Organized Health Care Education/Training Program ==

== ENCOUNTER 2024-03-16 08:04 | Outpatient (REF) | payer OTHER, SELFPAY ==
[2024-03-16 11:40] LABS: MANUAL DIFF FLAG NO
[2024-03-16 12:03] LABS: Basophils Absolute Auto 0.1 X10*3/uL (0.0-0.2); Basophils Percent Auto 0.7 % (0-2); Eosinophils Absolute Auto 0.2 X10*3/uL (0.0-0.4); Eosinophils Percent Auto 2.8 % (0-4); Hematocrit 42.4 % (37.0-47.0); Hemoglobin 13.9 g/dl (12.0-16.0); Imm Gran Abs Auto 0.03 X10*3/uL (0.00-0.03); Imm Gran Pct Auto 0.4 % (0.0-0.4); Lymphocytes Absolute Auto 2.8 X10*3/uL (1.2-4.9); Lymphocytes Percent Auto 38.4 % (20-40); Mean Corpuscular HGB Conc 32.8 g/dl (31.0-35.0); Mean Corpuscular Hemoglobin 29.6 pg (27.0-33.0); Mean Corpuscular Volume 90.4 fL (80.0-98.0); Mean Platelet Volume 9.8 fL (9.4-12.3); Monocytes Absolute Auto 0.4 X10*3/uL (0.1-1.2); Monocytes Percent Auto 6.1 % (2-11); Neutrophils Absolute Auto 3.8 x10*3/uL (2.0-8.3); Neutrophils Percent Auto 51.6 % (45-73); Platelet Count 424 X10*3/uL (160-400); Red Blood Count 4.69 X10*6/uL (4.20-5.50); Red Cell Distribution Width 12.9 % (11.0-16.0); White Blood Count 7.3 X10*3/uL (4.8-10.8)
[2024-03-16 12:27] LABS: Erythrocyte Sedimentation Rate 6 MM/HR (0-20)
[2024-03-16 12:44] LABS: Alanine Aminotransferase 20 U/L (0-31); Albumin Level 3.9 g/dL (3.5-5.0); Alkaline Phosphatase 70 U/L (39-117); Anion Gap 13 (12-20); Aspartate Amino Transferase 22 U/L (5-31); Bilirubin Total 0.5 mg/dL (0.0-1.0); Blood Urea Nitrogen 9 mg/dL (9-16); C Reactive Protein < 0.10 mg/dL (< or = 0.50); Calcium 9.4 mg/dL (8.4-10.2); Carbon Dioxide 24 mmol/L (22-29); Chloride 107 mmol/L (96-108); Estimated Glomerular Filt Rate > 60; Glucose Random 75 mg/dL (60-115); Sodium 140 mmol/L (135-145); Total Protein 7.2 g/dL (6.5-8.0)
== END 2024-03-16 08:05 | disposition home or self-care (01) ==
LOC: HO.WFDLDS 08:04
PROVIDERS: Visit Provider Student in an Organized Health Care Education/Training Program
DX: M05.9 Rheumatoid arthritis with rheumatoid factor, unspecified (principal)
CPT/HCPCS: 36415; 80053; 85025; 85652; 86140

== ENCOUNTER 2024-03-20 09:16 | Outpatient (AMB) | payer OTHER, SELFPAY ==
--- NOTE | 2024-03-20 09:22 | A.OFFVIS_ITS ---
Vital Signs 03/20/24 09:27 Height 5 ft 5 in Weight 247 lb 2.211 oz BMI 41.1 BP 106/72 Blood Pressure Location Rt brachial Position Sitting Pulse 66 Pulse Source Pulse Oximeter Pulse Oximetry (%) 99 Oxygen Delivery Method Room Air Intake Visit Reasons: RA/CM Intake Note: Patient last seen 11/16/23 presents today for follow up and test results. 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 Cover Installer Required: No Accompanied by: Self / Same As Patient Allergies BEE STINGS Allergy (Intermediate, Uncoded 03/20/24 09:28) Swelling Medication List - Last Reconciled 03/20/24 by Kell Mae MD albuterol sulfate 90 mcg/actuation (Ventolin HFA) 1 inh inhalation Q4-6H PRN budesonide 180 mcg/actuation (Pulmicort Flexhaler) inhalation cholecalciferol (vitamin D3) 25 mcg PO DAILY cyanocobalamin (vitamin B-12) 1,000 mcg PO DAILY ferrous sulfate 325 mg PO DAILY Humira Pen (adalimumab) 40 mg (0.8 mL) subcut Q2W NS lutein 10 mg PO DAILY naproxen sodium (Aleve) 220 mg PO BID PRN omeprazole 40 mg PO DAILY HPI Comments Details: 38yoF presents for follow-up of seropositive RA (RF+ CCP++). She was last seen 10/2023 On Humira 40 mg every other week. Well-tolerated. She states that over the last year so she had a couple of COVID infections which were mild. She also had a staph skin infection on the right side of her face that resolved with oral antibiotics. She questions the effect of Humira on her immune system. She has not had a high fever. Her shortness of breath has improved since her PCP put her on Pulmicort inhaler. She has not had to use her rescue inhaler recently [facility] Medical History Seropositive rheumatoid arthritis Surgical History Hx of tubal ligation Family History Father Diabetes Heart disease Mother Arthritis Social History Alcohol intake: current Alcohol intake frequency: holidays/special occasions only Alcohol type: hard liquor Patient Tobacco Use Status: Never used Tobacco Review of Systems Card Denies dyspnea and Denies dyspnea on exertion Resp Denies dyspnea and Denies dyspnea on exertion Musc Denies arthralgias Physical Exam Vital Signs: Last Vital Signs Pulse 66 03/20/24 09:27 BP 106/72 03/20/24 09:27 Pulse Ox 99 03/20/24 09:27 Oxygen Delivery Method Room Air 03/20/24 09:27 BMI result Body Mass Index 41.1 Const General: cooperative, healthy appearing and comfortable Nutritional Appearance: obese Orientation/consciousness: patient oriented x3 Limitations: no limitations HEENT Head: Yes normocephalic and Yes atraumatic Mouth: moist mucous membranes Resp Effort & Inspection: normal respiratory effort and able to speak in complete sentences Auscultation: clear to auscultation bilaterally and no wheezes Cardio Rate: regular rate Rhythm: regular rhythm Neuro General: patient oriented x3 Extrem Other: Mild prominence of PIPs bilaterally without swelling or tenderness No active synovitis Normal nailfold capillaroscopy Assessment & Plan Assessment & Plan (1) Seropositive rheumatoid arthritis: Comment: +RF++CCP Diagnosed age 23 Enbrel: stopped working after a few years Methotrexate: stopped, she thinks due to labs Simponi: Stopped working after a few years Humira: 07/2015-present Leflunomide: 2013- stopped due to low absolute neutrophil count, labs improved off medication, no change joint pain or swelling 07/2022 so did not restart Code(s): M05.9 - Rheumatoid arthritis with rheumatoid factor, unspecified Category: Medical Plan: This is a 38-year-old female with seropositive RA who presents for follow-up. Her RA is in remission on Humira 40 mg every other week. Continue Humira Infectious screening: Hepatitis panel and T spot negative 09/2023 Labs before next visit in 6 months (2) Shortness of breath: Code(s): R06.02 - Shortness of breath Category: Medical Plan: History of asthma as a child, PFTs were ordered to rule out interstitial lung disease. PFTs were consistent with obstructive disease. No suggestion of restrictive lung disease. Recently started on Pulmicort by her PCP with significant improvement (3) High risk medication use: Code(s): Z79.899 - Other care home (current) drug therapy Category: Medical Plan: Patient is aware of the risks of Humira. Advised patient to get a a complete skin exam every 1 or 2 years by Dermatology. Discussed possible increased infection wrists with Humira. Discussed with patient that mild viral infections with fevers less than 102 and not requiring a hospital visit generally do not warrant holding the Humira.. Patient can call the office whenever she has any questions. Plan I spent 26 minutes reviewing patient's chart, evaluating patient, ordering diagnostic workup, counseling patient and documenting in the chart Orders: Orders Comprehensive Met. Panel 6 Months M05.9 - Rheumatoid arthritis with rheumatoid factor, unspecified Complete Blood Count Auto Diff 6 Months M05.9 - Rheumatoid arthritis with rheumatoid factor, unspecified C Reactive Protein 6 Months M05.9 - Rheumatoid arthritis with rheumatoid factor, unspecified Erythrocyte Sedimentation Rate 6 Months M05.9 - Rheumatoid arthritis with rheumatoid factor, unspecified Coding Level of Care Code Est Pt Level 4 (30660) Diagnoses Seropositive rheumatoid arthritis M05.9 Shortness of breath R06.02 High risk medication use Z79.899
[2024-03-20 09:27] VITALS: BP 106/72; PULSE 66; O2SAT 99; BMI 41.1
== END 2024-03-20 10:02 | disposition home or self-care (01) ==
PROVIDERS: PCP Internal Medicine; Visit Provider Student in an Organized Health Care Education/Training Program
DX: M05.79 Rheumatoid arthritis with rheumatoid factor of multiple sites without organ or systems involvement (principal); R06.02 Shortness of breath; Z79.899 Other long term (current) drug therapy
CPT/HCPCS: 99214

== ENCOUNTER → 2024-03-20 09:16 | Outpatient (BNVA) | payer OTHER, SELFPAY | PROVIDERS: PCP Internal Medicine; Visit Provider Student in an Organized Health Care Education/Training Program ==

== ENCOUNTER 2024-09-18 09:04 | Outpatient (REF) | payer OTHER, SELFPAY ==
[2024-09-18 10:55] LABS: MANUAL DIFF FLAG NO
[2024-09-18 11:22] LABS: Basophils Absolute Auto 0.1 X10*3/uL (0.0-0.2); Basophils Percent Auto 0.6 % (0-2); Eosinophils Absolute Auto 0.6 X10*3/uL (0.0-0.4); Eosinophils Percent Auto 7.1 % (0-4); Hematocrit 41.7 % (37.0-47.0); Hemoglobin 13.9 g/dl (12.0-16.0); Imm Gran Abs Auto 0.04 X10*3/uL (0.00-0.03); Imm Gran Pct Auto 0.5 % (0.0-0.4); Lymphocytes Absolute Auto 3.5 X10*3/uL (1.2-4.9); Lymphocytes Percent Auto 41.7 % (20-40); Mean Corpuscular HGB Conc 33.3 g/dl (31.0-35.0); Mean Corpuscular Hemoglobin 29.9 pg (27.0-33.0); Mean Corpuscular Volume 89.7 fL (80.0-98.0); Mean Platelet Volume 10.1 fL (9.4-12.3); Monocytes Absolute Auto 0.5 X10*3/uL (0.1-1.2); Monocytes Percent Auto 6.4 % (2-11); Neutrophils Absolute Auto 3.7 x10*3/uL (2.0-8.3); Neutrophils Percent Auto 43.7 % (45-73); Platelet Count 301 X10*3/uL (160-400); Red Blood Count 4.65 X10*6/uL (4.20-5.50); Red Cell Distribution Width 12.8 % (11.0-16.0); White Blood Count 8.5 X10*3/uL (4.8-10.8)
[2024-09-18 11:39] LABS: Alanine Aminotransferase 18 U/L (0-31); Albumin Level 4.1 g/dL (3.5-5.0); Alkaline Phosphatase 70 U/L (39-117); Anion Gap 9 (12-20); Aspartate Amino Transferase 20 U/L (5-31); Bilirubin Total 0.7 mg/dL (0.0-1.0); Blood Urea Nitrogen 8 mg/dL (9-16); C Reactive Protein < 0.10 mg/dL (< or = 0.50); Calcium 9.3 mg/dL (8.4-10.2); Carbon Dioxide 26 mmol/L (22-29); Chloride 110 mmol/L (96-108); Estimated Glomerular Filt Rate > 60; Glucose Random 84 mg/dL (60-115); Potassium 4.3 mmol/L (3.3-5.1); Sodium 141 mmol/L (135-145); Total Protein 7.2 g/dL (6.5-8.0)
[2024-09-18 11:53] LABS: Erythrocyte Sedimentation Rate 6 MM/HR (0-20)
== END 2024-09-18 09:05 | disposition home or self-care (01) ==
LOC: HO.10HDL 09:04
PROVIDERS: Visit Provider Student in an Organized Health Care Education/Training Program
DX: M05.9 Rheumatoid arthritis with rheumatoid factor, unspecified (principal)
CPT/HCPCS: 36415; 80053; 85025; 85652; 86140

== ENCOUNTER 2024-10-30 09:13 | Outpatient (AMB) | payer OTHER, SELFPAY ==
[2024-10-30 09:24] VITALS: BP 110/58; PULSE 64; BMI 44.3
--- NOTE | 2024-10-30 09:24 | A.OFFVIS_ITS ---
Vital Signs 10/30/24 09:24 Height 5 ft 5 in Weight 266 lb 1.567 oz BMI 44.3 BP 110/58 L Blood Pressure Location Rt brachial Position Sitting Pulse 64 Pulse Source Pulse Oximeter Intake Visit Reasons: RA Intake Note: Patient last seen by Doctor Kell Mae on 03/20/24. Presents today for RA follow up and test results. 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 Required: No Accompanied by: Self / Same As Patient Allergies BEE STINGS Allergy (Intermediate, Uncoded 10/30/24 09:27) Swelling Medication List - Last Reconciled 10/30/24 by Kell Mae MD albuterol sulfate 90 mcg/actuation (Ventolin HFA) 1 inh inhalation Q4-6H PRN budesonide 180 mcg/actuation (Pulmicort Flexhaler) inhalation cholecalciferol (vitamin D3) 25 mcg PO DAILY cyanocobalamin (vitamin B-12) 1,000 mcg PO DAILY ferrous sulfate 325 mg PO DAILY Humira Pen (adalimumab) 40 mg (0.8 mL) subcut Q2W NS lutein 10 mg PO DAILY naproxen sodium (Aleve) 220 mg PO BID PRN omeprazole 40 mg PO DAILY HPI Comments Details: 39yoF presents for follow-up of seropositive RA (RF+ CCP++). She was last seen 02/2024 On Humira 40 mg every other week. Well-tolerated. She states that she has been doing well overall. She denies any recent fevers or infections. Her asthma has been well controlled. She uses her Pulmicort inhaler regularly. [facility] Medical History Seropositive rheumatoid arthritis Surgical History Hx of tubal ligation Family History Father Diabetes Heart disease Mother Arthritis Social History Alcohol intake: current Alcohol intake frequency: holidays/special occasions only Alcohol type: hard liquor Patient Tobacco Use Status: Never used Tobacco Female Reproductive History Menstrual Total pregnancies: 0 Review of Systems Card Denies dyspnea and Denies dyspnea on exertion Resp Denies dyspnea and Denies dyspnea on exertion Musc Denies arthralgias Physical Exam Vital Signs: Last Vital Signs Pulse 64 12/31/24 09:24 BP 110/58 L 10/30/24 09:24 BMI result Body Mass Index 44.3 Const General: cooperative, healthy appearing and comfortable Nutritional Appearance: obese Orientation/consciousness: patient oriented x3 Limitations: no limitations HEENT Head: Yes normocephalic and Yes atraumatic Mouth: moist mucous membranes Resp Effort & Inspection: normal respiratory effort and able to speak in complete sentences Auscultation: clear to auscultation bilaterally and no wheezes Cardio Rate: regular rate Rhythm: regular rhythm Neuro General: patient oriented x3 Extrem Other: Mild prominence of PIPs bilaterally without swelling or tenderness Very subtle osteoarthritic changes of both hands with early Heberden's and Gianluca's nodes No active synovitis Normal nailfold capillaroscopy Assessment & Plan Assessment & Plan (1) Seropositive rheumatoid arthritis: Comment: +RF++CCP Diagnosed age 23 Enbrel: stopped working after a few years Methotrexate: stopped, she thinks due to labs Simponi: Stopped working after a few years Humira: 07/2015-present Leflunomide: 2013- stopped due to low absolute neutrophil count, labs improved off medication, no change joint pain or swelling 07/2022 so did not restart Code(s): M05.9 - Rheumatoid arthritis with rheumatoid factor, unspecified Category: Medical Plan: This is a 38-year-old female with seropositive RA who presents for follow-up. Her RA is in remission on Humira 40 mg every other week. Continue Humira Patient has been in deep remission on Humira Labs before next visit in 1 year (2) High risk medication use: Code(s): Z79.899 - Other group home (current) drug therapy Category: Medical Plan: Patient is aware of the risks of Humira. Advised patient to get a a complete skin exam every 1 or 2 years by Dermatology. Discussed possible increased infection risks with Humira. Discussed with patient that mild viral infections with fevers less than 102 and not requiring a hospital visit generally do not warrant holding the Humira.. Patient can call the office whenever she has any questions. Plan I spent 26 minutes reviewing patient's chart, evaluating patient, ordering diagnostic workup, counseling patient and documenting in the chart Orders: Orders Complete Blood Count Auto Diff 1 Year M05.9 - Rheumatoid arthritis with rheumatoid factor, unspecified Comprehensive Met. Panel 1 Year M05.9 - Rheumatoid arthritis with rheumatoid factor, unspecified Erythrocyte Sedimentation Rate 1 Year M05.9 - Rheumatoid arthritis with rhe umatoid factor, unspecified C Reactive Protein 1 Year M05.9 - Rheumatoid arthritis with rheumatoid factor, unspecified Hepatitis A,B,C Profile 1 Year Z11.59 - Encounter for screening for other viral diseases T Spot TB 1 Year Z11.7 - Encounter for testing for latent tuberculosis infection Coding Level of Care Code Est Pt Level 4 (54988) Diagnoses Seropositive rheumatoid arthritis M05.9 High risk medication use Z79.899
== END 2024-10-30 09:40 | disposition home or self-care (01) ==
PROVIDERS: PCP Internal Medicine; Visit Provider Student in an Organized Health Care Education/Training Program
DX: M05.79 Rheumatoid arthritis with rheumatoid factor of multiple sites without organ or systems involvement (principal); Z79.899 Other long term (current) drug therapy
CPT/HCPCS: 99214

== ENCOUNTER → 2024-10-30 09:13 | Outpatient (BNVA) | payer OTHER, SELFPAY | PROVIDERS: PCP Internal Medicine; Visit Provider Student in an Organized Health Care Education/Training Program ==

== ENCOUNTER 2025-03-26 09:12 | Outpatient (REF) | payer OTHER, SELFPAY ==
[2025-03-26 09:54] LABS: MANUAL DIFF FLAG NO
[2025-03-26 10:21] LABS: Basophils Percent Auto 0.7 % (0-2); Eosinophils Absolute Auto 0.3 X10*3/uL (0.0-0.4); Eosinophils Percent Auto 4.7 % (0-4); Hematocrit 40.3 % (37.0-47.0); Hemoglobin 13.7 g/dl (12.0-16.0); Imm Gran Abs Auto 0.04 X10*3/uL (0.00-0.03); Imm Gran Pct Auto 0.7 % (0.0-0.4); Lymphocytes Absolute Auto 2.6 X10*3/uL (1.2-4.9); Lymphocytes Percent Auto 43.7 % (20-40); Mean Corpuscular Hemoglobin 29.5 pg (27.0-33.0); Mean Corpuscular Volume 86.7 fL (80.0-98.0); Mean Platelet Volume 9.7 fL (9.4-12.3); Monocytes Absolute Auto 0.4 X10*3/uL (0.1-1.2); Monocytes Percent Auto 6.6 % (2-11); Neutrophils Absolute Auto 2.6 x10*3/uL (2.0-8.3); Neutrophils Percent Auto 43.6 % (45-73); Platelet Count 309 X10*3/uL (160-400); Red Blood Count 4.65 X10*6/uL (4.20-5.50); Red Cell Distribution Width 12.9 % (11.0-16.0); White Blood Count 5.9 X10*3/uL (4.8-10.8)
[2025-03-26 10:53] LABS: HBS Num1 70.25 mIU/mL (0-7.99); HBc Num1 0.08 S/CO (0.00-0.79); HBsAGNum1 0.32 S/CO (0.00-0.99); Hepatitis A Antibody IgM 0.21 Index (0-0.79); Hepatitis B Core Antibody Nonreactive (Nonreactive); Hepatitis B Surface Antigen Negative (Negative); ~HepC Num1 0.12 S/CO (0.00-0.79); ~Hepatitis A Antibody IgM Nonreactive (Nonreactive); ~Hepatitis B Surface Antibody REACTIVE (Nonreactive); ~Hepatitis C Antibody Nonreactive (Nonreactive)
[2025-03-26 10:59] LABS: Erythrocyte Sedimentation Rate 9 MM/HR (0-20)
[2025-03-26 11:04] LABS: Alanine Aminotransferase 17 U/L (0-31); Albumin Level 4.2 g/dL (3.5-5.0); Alkaline Phosphatase 62 U/L (39-117); Anion Gap 9 (12-20); Aspartate Amino Transferase 24 U/L (5-31); Bilirubin Total 0.6 mg/dL (0.0-1.0); Blood Urea Nitrogen 10 mg/dL (9-16); C Reactive Protein < 0.10 mg/dL (< or = 0.50); Calcium 9.2 mg/dL (8.4-10.2); Carbon Dioxide 26 mmol/L (22-29); Chloride 110 mmol/L (96-108); Estimated Glomerular Filt Rate > 60; Glucose Random 83 mg/dL (60-115); Sodium 141 mmol/L (135-145); Total Protein 7.1 g/dL (6.5-8.0)
[2025-03-29 00:34] LABS: TS Negative Control Passed; TS Panel A 0; TS Panel B 3; TS Positive Control Passed; TSpotTB Negative (Negative)
== END 2025-03-26 09:13 | disposition home or self-care (01) ==
LOC: HO.10HDL 09:12
PROVIDERS: Visit Provider Student in an Organized Health Care Education/Training Program
DX: M05.9 Rheumatoid arthritis with rheumatoid factor, unspecified (principal); Z11.59 Encounter for screening for other viral diseases; Z11.7 Encounter for testing for latent tuberculosis infection
CPT/HCPCS: 36415; 80053; 85025; 85652; 86140; 86481; 86704; 86706; 86709; 86803; 87340

== ENCOUNTER 2025-03-27 09:36 | Outpatient (AMB) | payer OTHER, SELFPAY ==
--- NOTE | 2025-03-27 09:37 | A.OFFVIS_ITS ---
Vital Signs 03/27/25 09:43 Height 5 ft 5 in Weight 261 lb 7.492 oz BMI 43.5 BP 122/80 Blood Pressure Location Rt brachial Position Sitting Pulse 65 Pulse Source Pulse Oximeter Pulse Oximetry (%) 99 Oxygen Delivery Method Room Air Intake Visit Reasons: RA Intake Note: Patient presents for RA follow up. Allergies BEE STINGS Allergy (Intermediate, Uncoded 10/30/24 09:27) Swelling Medication List - Last Reconciled 03/27/25 by Jessenia Pena MD adalimumab-atto (Amjevita(CF) Autoinjector) 40 mg subcutaneously; albuterol sulfate 90 mcg/actuation (Ventolin HFA) 1 inh inhalation Q4-6H PRN budesonide 180 mcg/actuation (Pulmicort Flexhaler) inhalation cholecalciferol (vitamin D3) 25 mcg PO DAILY cyanocobalamin (vitamin B-12) 1,000 mcg PO DAILY ferrous sulfate 325 mg PO DAILY lutein 10 mg PO DAILY naproxen sodium (Aleve) 220 mg PO BID PRN omeprazole 40 mg PO DAILY HPI Comments Details: Patient is a 39-year-old female with asthma and seropositive rheumatoid arthritis here today for follow up Interval History: Patient last seen 10/30/[address] Mae. At that time she was following up for her seropositive rheumatoid arthritis on Humira 40 mg every other week. She reported that she was doing well overall with no fevers or infections or joint pain. Today, Patient doing overall well but reports that she is starting get increased achyness and stiffness about 7-10 days after the injection. No associated swelling Rheumatologic History: +RF++CCP Diagnosed age 23 Enbrel: stopped working after a few years Methotrexate: stopped, she thinks due to labs Simponi: Stopped working after a few years Humira: 07/2015-present Leflunomide: 2013- stopped due to low absolute neutrophil count, labs improved off medication, no change joint pain or swelling 07/2022 so did not restart Current Rheumatology Medication(s): Adalimumab-atto 40mg every other week SC PFSH Medical History Seropositive rheumatoid arthritis Surgical History Hx of tubal ligation Family History Father Diabetes Heart disease Mother Arthritis Social History Alcohol intake: current Alcohol intake frequency: holidays/special occasions only Alcohol type: hard liquor Patient Tobacco Use Status: Never used Tobacco Review of Systems Const Details: Review of Systems Constitutional: Denies fever, chills, weight loss ENT: Denies vision changes, eye pain or eye redness, dental caries, dry mouth GI: Denies nausea, vomiting, diarrhea, abdominal pain, change in BM Pulm: Denies SOB, QUINTERO, hemoptysis, wheezing Cards: Denies chest pain, palpitations Skin: Denies Raynaud's, rash, nail changes, photosensitivity, AIRLINE 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 Well appearing and in no apparent painful distress HEENT Conjunctiva and sclera clear. ?Pupils equal round and reactive to light. ?No lymphadenopathy. ? CHEST/RESPIRATORY SYSTEM Normal respiratory effort and able to speak in complete sentences. ?Clear to auscultation bilaterally. ?No crackles, rales, rhonchi, wheezes heard. CARDIAC SYSTEM Regular rate and rhythm. ?S1 and S2 heard no murmurs. ?Radial pulses intact bilaterally MSK Hands: ?Able to make a fist. No synovitis noted to the MCPs, PIPs or DIPs. ?No tenderness to palpation of these joints. No deformities noted. ? Wrists: ?Full range of motion at the wrists without pain. ?No tenderness to palpation or synovitis noted to the wrists. Elbows: Full range of motion without pain. No tenderness, weakness, swelling, increased warmth or erythema. Shoulders: Full range of active range of motion without pain. No tenderness, weakness, swelling, increased warmth or erythema. Knees: ?Full range of motion. ?No tenderness, swelling, increased warmth or erythema.?No effusion or crepitations Ankles: Full range of motion. ?No tenderness, swelling, increased warmth or erythema.? Feet: ?Negative squeeze test. ?No tenderness to palpation or swelling of the MTPs. Tender points:?No tenderness to palpation of the bilateral trapezius, supraspinatus, greater trochanters, anterior costochondral junctions, bilateral gluteal areas, bilateral suboccipital muscle insertions SKIN Skin intact without rashes. Results Reviewed Results Reviewed: Laboratory Tests 03/26/25 09:16 WBC 5.9 RBC 4.65 Hgb 13.7 Hct 40.3 Plt Count 309 ESR 9 Sodium 141 Potassium 4.0 Chloride 110 H Carbon Dioxide 26 BUN 10 Creatinine 0.75 Total Bilirubin 0.6 AST 24 ALT 17 Alkaline Phosphatase 62 C-Reactive Protein < 0.10 Infectious serologies 10/26/23 03/26/25 08:48 09:16 Hepatitis A IgM Ab Nonreactive Hep Bs Antigen Negative Hep Bs Antibody REACTIVE Hep B Core Total Ab Nonreactive Hepatitis C Ab (EIA) Nonreactive TB Test (T-Spot) Com Negative Pending Assessment & Plan Assessment & Plan (1) Seropositive rheumatoid arthritis: Comment: +RF++CCP Diagnosed age 23 Enbrel: stopped working after a few years Methotrexate: stopped, she thinks due to labs Simponi: Stopped working after a few years Humira: 07/2015-present Leflunomide: 2013- stopped due to low absolute neutrophil count, labs improved off medication, no change joint pain or swelling 07/2022 so did not restart Code(s): M05.9 - Rheumatoid arthritis with rheumatoid factor, unspecified Category: Medical Plan: #Seropositive RA Patient is a 39-year-old female with seropositive rheumatoid arthritis here today for follow up. Patient having moderate activity of her RA close to her dosage timing. 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) use of immunosuppressive biologic Plan: #Long-term Use of TNF Inhibitors: Adalimumab-atto Discussed with the patient the benefits and risks of TNF inhibitors for the management of the rheumatic condition Benefits include reduce pain, maintenance of remission and reduction of flares as well as ?progression of the disease Risks include injection sites/infusion reactions, serious infections (such as bacterial infections, opportunistic infections), malignancy, delaminating syndromes, autoimmune phenomena, CHF exacerbations, palmar plantar psoriasis and cytopenias Recommended rotating injection sites, and holding medication during and for up to 1 week after resolution of a febrile illness or open skin wound Plan I spent 20 minutes reviewing the record and labs, taking a history, examining the patient, discussing the treatment plan, ordering diagnostic work up and documenting in the medical record Orders: Orders Complete Blood Count Auto Diff 6 Months M05.9 - Rheumatoid arthritis with rheumatoid factor, unspecified Comprehensive Met. Panel 6 Months M05.9 - Rheumatoid arthritis with rheumatoid factor, unspecified C Reactive Protein 6 Months M05.9 - Rheumatoid arthritis with rheumatoid factor, unspecified Erythrocyte Sedimentation Rate 6 Months M05.9 - Rheumatoid arthritis with rheumatoid factor, unspecified Medications: Changed From adalimumab-atto (Amjevita(CF) Autoinjector) (0.4 mL) 40 mg subcutaneously; 0.8 mL 4RF M05.9 - Rheumatoid arthritis with rheumatoid factor, unspecified To adalimumab-atto (Amjevita(CF) Autoinjector) 40 mg (0.4 mL) subcut .every 10 days 1.2 mL 6RF M05.9 - Rheumatoid arthritis with rheumatoid factor, unspecified Coding Level of Care Code Est Pt Level 3 (27132) Complex EM visit Add On G2211 Diagnoses Seropositive rheumatoid arthritis M05.9 Encounter for monitoring of adalimumab therapy Z51.81; Z79.620
[2025-03-27 09:43] VITALS: BP 122/80; PULSE 65; O2SAT 99; BMI 43.5
== END 2025-03-27 10:09 | disposition home or self-care (01) ==
LOC: HO.RHE 09:36
PROVIDERS: PCP Internal Medicine; Visit Provider Student in an Organized Health Care Education/Training Program
DX: M05.79 Rheumatoid arthritis with rheumatoid factor of multiple sites without organ or systems involvement (principal); Z51.81 Encounter for therapeutic drug level monitoring; Z79.620 Long term (current) use of immunosuppressive biologic
CPT/HCPCS: 99213

== ENCOUNTER → 2025-03-27 09:36 | Outpatient (BNVA) | payer OTHER, SELFPAY | PROVIDERS: PCP Internal Medicine; Visit Provider Student in an Organized Health Care Education/Training Program ==

== ENCOUNTER 2025-09-24 08:38 | Outpatient (REF) | payer OTHER, SELFPAY ==
[2025-09-24 08:53] LABS: MANUAL DIFF FLAG NO
[2025-09-24 09:40] LABS: Hematocrit 40.1 % (37.0-47.0); Hemoglobin 13.4 g/dl (12.0-16.0); Imm Gran Abs Auto 0.03 X10*3/uL (0.00-0.03); Imm Gran Pct Auto 0.4 % (0.0-0.4); Lymphocytes Absolute Auto 3.0 X10*3/uL (1.2-4.9); Mean Corpuscular HGB Conc 33.4 g/dl (31.0-35.0); Mean Corpuscular Hemoglobin 29.5 pg (27.0-33.0); Mean Corpuscular Volume 88.3 fL (80.0-98.0); NRBC Abs Auto 0.000 X10*3/uL (0.0-0.012); NRBC Pct Auto 0.0 /100WBC (0.0-0.2); Platelet Count 346 X10*3/uL (160-400); Red Blood Count 4.54 X10*6/uL (4.20-5.50); White Blood Count 6.7 X10*3/uL (4.8-10.8)
[2025-09-24 10:02] LABS: Alanine Aminotransferase 17 U/L (0-31); Albumin Level 4.4 g/dL (3.5-5.0); Alkaline Phosphatase 65 U/L (39-117); Anion Gap 10 (12-20); Aspartate Amino Transferase 21 U/L (5-31); Blood Urea Nitrogen 10 mg/dL (9-16); Calcium 9.5 mg/dL (8.4-10.2); Carbon Dioxide 27 mmol/L (22-29); Chloride 109 mmol/L (96-108); Estimated Glomerular Filt Rate > 60; Potassium 4.0 mmol/L (3.3-5.1); Sodium 142 mmol/L (135-145); Total Protein 7.1 g/dL (6.5-8.0)
== END 2025-09-24 08:39 | disposition home or self-care (01) ==
LOC: HO.LAB 08:38
PROVIDERS: PCP Internal Medicine; Visit Provider Student in an Organized Health Care Education/Training Program
DX: M05.9 Rheumatoid arthritis with rheumatoid factor, unspecified (principal)
CPT/HCPCS: 36415; 80053; 85025; 85652; 86140

== ENCOUNTER 2025-09-25 07:21 | Outpatient (AMB) | payer OTHER, SELFPAY ==
--- NOTE | 2025-09-25 07:31 | MHC.OFFVIS ---
Vital Signs 09/25/25 07:36 Height 5 ft 5 in Weight 246 lb 11.156 oz BMI 41.0 BP 130/82 Blood Pressure Location Lt brachial Position Sitting Pulse 73 Pulse Source Pulse Oximeter Pulse Oximetry (%) 98 Oxygen Delivery Method Room Air Intake Visit Reasons: f/u RA Intake Note: Patient presents for RA follow up. Allergies BEE STINGS Allergy (Intermediate, Uncoded 10/30/24 09:27) Swelling Medication List - Last Reconciled 09/25/25 by Jessenia Pena MD adalimumab-atto (Amjevita(CF) Autoinjector) 40 mg (0.4 mL) subcut .every 10 days albuterol sulfate 90 mcg/actuation (Ventolin HFA) 1 inh inhalation Q4-6H PRN budesonide 180 mcg/actuation (Pulmicort Flexhaler) inhalation cholecalciferol (vitamin D3) 25 mcg PO DAILY cyanocobalamin (vitamin B-12) 1,000 mcg PO DAILY ferrous sulfate 325 mg PO DAILY lutein 10 mg PO DAILY naproxen sodium (Aleve) 220 mg PO BID PRN omeprazole 40 mg PO DAILY HPI Comments Details: Patient is a 40-year-old female with asthma and seropositive rheumatoid arthritis here today for follow up Interval History: Patient last seen 03/27/25 with me - On Adalimumab-atto 40mg every other week SC - Patient doing overall well but reports that she is starting get increased achyness and stiffness about 7-10 days after the injection. - No associated swelling - Noted worsening disease close to medication due - Frequency increased to every 10 days Today - On Adalimumab-atto 40mg every 10 days - Adjusted injection frequency to every 10 days has improved symptoms. - Gets intermittent pain toes and finger but only lasts about 1 day - No specific complaints Rheumatologic History: +RF++CCP Diagnosed age 23 Enbrel: stopped working after a few years Methotrexate: stopped, she thinks due to labs Simponi: Stopped working after a few years Humira: 07/2015-present Leflunomide: 2014- stopped due to low absolute neutrophil count, labs improved off medication, no change joint pain or swelling 07/2022 so did not restart Current Rheumatology Medication(s): Adalimumab-atto 40mg every 10 days [facility] Medical History Seropositive rheumatoid arthritis Surgical History Hx of tubal ligation Family History Father Diabetes Heart disease Mother Arthritis Social History Alcohol intake: current Alcohol intake frequency: holidays/special occasions only Alcohol type: hard liquor Patient Tobacco Use Status: Never used Tobacco Review of Systems Narrative Review of Systems Constitutional: Denies fever, chills, weight loss ENT: Denies vision changes, eye pain or eye redness, dental caries, dry mouth GI: Denies nausea, vomiting, diarrhea, abdominal pain, change in BM Pulm: Denies SOB, QUINTERO, hemoptysis, wheezing Cards: Denies chest pain, palpitations Skin: Denies Raynaud's, rash, nail changes, photosensitivity, 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 Well appearing and in no apparent painful distress MSK Hands Right Hand: Able to make a fist. No swelling or tenderness to palpation of the MCPs, PIPs or DIPs. No deformities noted. Left Hand: Able to make a fist. No swelling or tenderness to palpation of the MCPs, PIPs or DIPs. No deformities noted. Wrists Right Wrist: Decreased ROM to flexion No swelling or TTP Left Wrist: Full ROM to flexion and extension. No swelling or TTP Elbows Right Elbow: Full ROM. No swelling or TTP. No TTP of the medial epicondyle. No TTP of the lateral epicondyle Left Elbow: Full ROM. No swelling or TTP. No TTP of the medial epicondyle. No TTP of the lateral epicondyle Shoulders Right shoulder: Full ROM. No swelling noted. No TTP of the AC joint. No TTP of the subacromial bursa. No TTP of the posterior shoulder Left shoulder: Full ROM. No swelling noted. No TTP of the AC joint. No TTP of the subacromial bursa. No TTP of the posterior shoulder Knees Right knee: Full ROM. No swelling noted. No TTP of the knee joint line. No TTP of pes anserine bursa Left knee: Full ROM. No swelling noted. No TTP of the knee joint line. No TTP of pes anserine bursa. Ankles Right ankle: Good ankle dorsiflexion and plantar flexion. No swelling. No TTP of the ankle joint Left ankle: Good ankle dorsiflexion and plantar flexion. No swelling. No TTP of the ankle joint Feet Right foot: Negative squeeze test Left foot: Negative squeeze test Tender points? No tenderness to palpation of the bilateral trapezius, supraspinatus, anterior costochondral junctions, bilateral suboccipital muscle insertions SKIN No rashes Vital Signs: Last Vital Signs Pulse 73 09/25/25 07:36 BP 130/82 09/25/25 07:36 Pulse Ox 98 09/25/25 07:36 Oxygen Delivery Method Room Air 09/25/25 07:36 BMI result Body Mass Index 41.0 Results Reviewed Results Reviewed: Laboratory Tests 09/24/25 08:50 WBC 6.7 RBC 4.54 Hgb 13.4 Hct 40.1 Plt Count 346 ESR 8 Sodium 142 Potassium 4.0 Chloride 109 H Carbon Dioxide 27 BUN 10 Creatinine 0.75 AST 21 ALT 17 C-Reactive Protein < 0.10 Laboratory Tests 03/26/25 09:16 Hepatitis A IgM Ab Nonreactive Hep Bs Antigen Negative Hep Bs Antibody REACTIVE Hep B Core Total Ab Nonreactive Hepatitis C Ab (EIA) Nonreactive TB Test (T-Spot) Com Negative Assessment & Plan Assessment & Plan (1) Seropositive rheumatoid arthritis: Comment: +RF++CCP Diagnosed age 23 Enbrel: stopped working after a few years Methotrexate: stopped, she thinks due to labs Simponi: Stopped working after a few years Humira: 07/2015-present Leflunomide: 2013- stopped due to low absolute neutrophil count, labs improved off medication, no change joint pain or swelling 07/2022 so did not restart Humira frequency increased 02/2025 Code(s): M05.9 - Rheumatoid arthritis with rheumatoid factor, unspecified Category: Medical Plan: #Seropositive RA Patient is a 39-year-old female with seropositive rheumatoid arthritis here today for follow up. IMproved on increased frequency of adalimumab Plan - Adalimumab-atto 40mg every 10 days - RTC 6 months - Labs before visit: CBC, AST, ALT, Cr, ESR, CRP, Hepatitis panel and T spot (2) Encounter for monitoring of adalimumab therapy: Code(s): Z51.81 - Encounter for therapeutic drug level monitoring; Z79.620 - intermediate (current) use of immunosuppressive biologic Plan: #Long-term Use of TNF Inhibitors: Adalimumab-atto Discussed with the patient the benefits and risks of TNF inhibitors for the management of the rheumatic condition Benefits include reduce pain, maintenance of remission and reduction of flares as well as ?progression of the disease Risks include injection sites/infusion reactions, serious infections (such as bacterial infections, opportunistic infections), malignancy, delaminating syndromes, autoimmune phenomena, CHF exacerbations, palmar plantar psoriasis and cytopenias Recommended rotating injection sites, and holding medication during and for up to 1 week after resolution of a febrile illness or open skin wound Plan I discussed with the patient the current status of the rheumatoid arthritis management with Amjeveta. The adjustment to a 10-day frequency has alleviated some symptoms, and blood work shows no inflammatory concerns. I emphasized the importance of routine follow-ups and scheduled the next evaluation in six months. We also agreed to perform a yearly infection study, including tests for TB and hepatitis B and C, which are requirements from both the drug companies and insurers. The patient acknowledged understanding and agreed to the plan. I spent 20 minutes reviewing the record and labs, taking a history, examining the patient, discussing the treatment plan, ordering diagnostic work up and documenting in the medical record Orders: Orders Complete Blood Count Auto Diff 6 Months Z79.899 - Other alf (current) drug therapy Alanine Aminotransferase 6 Months Z79.899 - Other termite control servicer (current) drug therapy Creatinine 6 Months Z79.899 - Other termite control servicer (current) drug therapy C Reactive Protein 6 Months Z79.899 - Other termite control servicer (current) drug therapy Hepatitis B,C Profile 6 Months Z79.899 - Other termite control servicer (current) drug therapy T Spot TB 6 Months Z79.899 - Other termite control servicer (current) drug therapy Aspartate Amino Transferase 6 Months Z79.899 - Other termite control servicer (current) drug therapy Erythrocyte Sedimentation Rate 6 Months Z79.899 - Other alf (current) drug therapy Medications: Refilled adalimumab-atto (Amjevita(CF) Autoinjector) 40 mg (0.4 mL) subcut .every 10 days 1.2 mL 5RF M05.9 - Rheumatoid arthritis with rheumatoid factor, unspecified Coding Level of Care Code Est Pt Level 3 (56188) Complex visit Add On G2211 Diagnoses Seropositive rheumatoid arthritis M05.9 Encounter for monitoring of adalimumab therapy Z51.81; Z79.620
[2025-09-25 07:36] VITALS: BP 130/82; PULSE 73; O2SAT 98; BMI 41.0
== END 2025-09-25 07:54 | disposition home or self-care (01) ==
LOC: HO.RHES 07:21
PROVIDERS: PCP Internal Medicine; Visit Provider Student in an Organized Health Care Education/Training Program
DX: M05.9 Rheumatoid arthritis with rheumatoid factor, unspecified (principal); Z51.81 Encounter for therapeutic drug level monitoring; Z79.620 Long term (current) use of immunosuppressive biologic
CPT/HCPCS: 99213; G2211